=== PATIENT | male | born 1995 | race Caucasian/White ===

== ENCOUNTER 2022-05-24 10:41 | Outpatient (REF) | payer OTHER, SELFPAY ==
[2022-05-24 12:26] LABS: Cholesterol 133 mg/dL; Glucose Fasting 80 mg/dL (60-99); HDL Cholesterol 49 mg/dL; LDL Cholesterol Calculated 72 mg/dl; Triglycerides 61 mg/dL
== END 2022-05-24 10:42 | disposition home or self-care (01) ==
LOC: HO.LAB 10:41
PROVIDERS: Visit Provider Family Medicine
DX: E66.01 Morbid (severe) obesity due to excess calories (principal); Z82.49 Family history of ischemic heart disease and other diseases of the circulatory system
CPT/HCPCS: 36415; 80061; 82947

== ENCOUNTER 2024-12-30 13:45 | Outpatient (AMB) | payer OTHER, SELFPAY ==
--- NOTE | 2024-12-30 13:50 | A.OFFPC_ITS ---
Vital Signs 12/30/24 13:57 Height 5 ft 7.32 in Weight 252 lb BMI 39.1 BP 116/88 Blood Pressure Location Lt brachial Position Sitting Respiration 20 Pulse 96 Pulse Source Pulse Oximeter Temp 98.1 F Temp Source Temporal Artery Scan Pulse Oximetry (%) 98 Oxygen Delivery Method Room Air Intake Visit Reasons: cough for over a month Insurance Verify Rep Required: No Accompanied by: Self / Same As Patient Allergies No Known Allergies Allergy (Verified 12/30/24 13:50) Tobacco use date assessed: 12/30/24 Dental Screening Dental Screen Date: 12/30/24 Did you have a dental visit in the last 12 months?: Yes Did you have a dental problem in the last 6 months where you did not have access to dental care?: No Was dental information given to patient?: Patient has dentist HPI HPI Comments History of Present Illness Details The patient is a 29-year-old male presenting for evaluation of a persistent cough for over a month. He reports the cough has been present throughout the day and is dry in nature. The cough has been severe enough to cause pain and, on one occasion, he almost vomited. Last week, he was seen at an urgent care center where he was diagnosed with acute bronchitis and prescribed doxycycline, a 5-day course of prednisone 40 mg, azithromycin, promethazine DM, and a Ventolin inhaler, which he states have helped his symptoms. He has also used wojs-dru-emhuqyf Robitussin and cough drops, which provided temporary relief. He denies any fever, chills, or bringing up any phlegm. The patient denies any personal history of asthma, reactive airway disease, surgeries, or other medical conditions. He endorses a history of seasonal allergies to dust. His father from esophageal cancer in his early 50s and had a history of chronic acid reflux. Medical History: - Seasonal allergies Surgical History: - No prior surgeries reported. Medications: - Doxycycline (recently completed) - Prednisone 40 mg for 5 days (recently completed) - Azithromycin (Z-Teofilo) (recently [facility] ed) - Nasal spray (recently used) - Promethazine DM for cough (recently [facility] ed) - Ventolin inhaler (prescribed, not yet used) - Robitussin (qrop-fxz-bpmpzoo) - Cough drops (delq-zvh-onatany) Family History: - Father: in his early 50s from esophageal cancer; had a history of acid reflux. - Denies family history of diabetes or h eart disease. 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 - Substance Use: Denies use of tobacco, alcohol, marijuana, heroin, or cocaine. 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 1. Little interest or pleasure in doing things: not at all 2. Feeling down, depressed, or hopeless: not at all 3. Trouble falling or staying asleep, or sleeping too much: not at all 4. Feeling tired or having little energy: not at all 5. Poor appetite or overeating: not at all 6. Feeling bad about yourself - or that you are a failure or have let yourself or your family down: not at all 7. Trouble concentrating on things, such as reading the newspaper or watching television: not at all 8. Moving or speaking so slowly that other people could have noticed. Or the opposite - being so fidgety or restless that you have been moving around a lot more than usual: not at all 9. Thoughts that you would be better off or of hurting yourself in some way: not at all Total score: 0 Depression Screening Interpretation: Negative Depression Screening Done: Yes 13284 - PHQ-9 Billing: Yes Source: Developed by Drs. Ruben Easley, Suzette Albarado, Arthur Sharma and colleagues, with an educational yolis from [email or web address]. Thrive Questionnaire Date Thrive assessed: 12/30/24 I am a: Patient What is your living situation today?: I have a steady place to live Within the past 12 months, did the food you bought not last and you didn't have the money to get more?: Never true Within the past 12 months, did you worry whether your food would run out before you got money to buy more?: Never true Do you have trouble paying for medicines?: No Do you have trouble getting transportation to medical appointments?: No Do you have trouble paying your heating and electricity bill?: No Do you have trouble taking care of your child, family member or friend?: No Do you have trouble with day-to-day activities such as bathing, preparing meals, shopping, managing finances, etc.?: No Are you currently unemployed and looking for a job?: No Are you interested in more education?: No THRIVE Score: 0 AUDIT C Alcohol Use Questionnaire (AUDIT-C) 1. How often do you have a drink containing alcohol?: Never 3. How often do you have six or more drinks on one occasion?: Never Total Score: 0 Score Reviewed/Action Taken: Yes MYLENE-7 AMB Questionnaire MYLENE-7 Date MYLENE - 7 assessed: 12/30/24 Feeling nervous, anxious, or on edge: 0 = Not at all Not being able to stop or control worryin = Not at all Worrying too much about different things: 0 = Not at all Trouble relaxin = Not at all Being so restless that it is hard to sit still: 0 = Not at all Becoming easily annoyed or irritable: 0 = Not at all Feeling afraid as if something awful might happen: 0 = Not at all Total MYLENE-7 score (0-4 normal; 5-9 mild; 10-14 moderate; 15-21 severe): 0 Source: Developed by Drs. Ruben Easley, Suzette Albarado, Arthur Sharma and colleagues, with an educational yolis from [email or web address]. MYLENE-7 Assessment Billing MYLENE-7 Assessment Tool: MYLENE-7 Assessment 99690 Review of Systems Narrative - Constitutional: Denies fever, chills, weight loss, or weight gain. - Respiratory: Reports a persistent, dry cough for over a month, which causes pain from its severity. Denies shortness of breath or cough that awakens him from sleep. - HEENT: Denies vision loss, nasal stuffiness, or postnasal drip. - Cardiovascular: Denies chest pain. - Gastrointestinal: Denies heartburn, acid reflux, abdominal pain, difficulty swallowing, or food getting stuck. Reports normal bowel function. - Neurological: Denies headaches. All systems reviewed & are unremarkable except as reviewed in HPI and above Physical exam (Primary Care) Vital Signs: Last Vital Signs Temp 98.1 F 12/30/24 13:57 Pulse 96 12/30/24 13:57 Resp 20 12/30/24 13:57 BP 116/88 12/30/24 13:57 Pulse Ox 98 12/30/24 13:57 Oxygen Delivery Method Room Air 12/30/24 13:57 BMI result Body Mass Index 39.1 Tobacco/Smoking Status: Tobacco use Status Tobacco use date assessed 12/30/24 12/30/24 13:51 Patient Tobacco Use Status Never used Tobacco 12/30/24 13:51 e-Cigarette/Vaping Use Never Used 12/30/24 13:51 PHQ-9: PHQ-9 Score PHQ-9: Total score 0 12/30/24 13:59 Depression Screening Interpretation: Negative Thrive Assessment: Date of Thrive Assessment Date Thrive assessed 12/30/24 12/30/24 13:51 Narrative General: Alert and oriented, Well nourished, No acute distress. Eye: Pupils are equal, round and reactive to light, Intact accommodation, Extraocular movements are intact, Normal conjunctiva, Vision unchanged. HENT: Normocephalic, Atraumatic, Tympanic membranes are clear, Normal hearing, Oral mucosa is moist, No pharyngeal erythema, Ear canals patent. Respiratory: Lungs CTA bilaterally, No wheeze, Respirations are non-labored. Cardiovascular: Regular rate, Regular rhythm, S1 auscultated, S2 auscultated, No murmur, Good pulses equal in all extremities, Normal peripheral perfusion, No edema. Gastrointestinal: Soft, Non-tender, Non-distended, Normal bowel sounds, No organomegaly. Musculoskeletal: Normal range of motion, Normal strength, No tenderness, No swelling, No deformity, Normal gait. Integumentary: Warm, Dry, [place], Intact. Neurologic: Alert, Oriented, Normal sensory, Normal motor function, No focal defects, Cranial Nerves II-XII are grossly intact, Normal deep tendon reflexes. Psychiatric: Cooperative, Appropriate mood & affect, Normal judgment. Coding Level of Care Code New Pt Level 4 (41558) Diagnoses Acute cough R05.1 Additional Codes MYLENE-7 Assessment Billing - MYLENE-7 Assessment Tool: MYLENE-7 Assessment 86581 ([id number]) PHQ-9 - 82022 - PHQ-9 Billing: Yes ([id number]) Assessment & Plan Assessment & Plan (1) Acute cough: Comment: - The patient is a 29-year-old male with a persistent cough for over a month, which has been improving after recent treatment from an urgent care facility. - The differential diagnosis includes post-viral bronchitis, underlying asthma, postnasal drip from allergies, or a gastroesophageal reflux component, though he denies typical reflux symptoms. - Given the improvement with steroids, an inflammatory component such as asthma is possible, although he has no prior history and has not yet tried his prescribed inhaler. - The plan is to discontinue the recently completed course of medications and observe. - If the cough returns, he will trial individual therapies, including his Vent tere inhaler, xghq-fui-pajjqmd loratadine for allergies, and possibly an acid reflux medication, to help determine the etiology. - Further antibiotics are not indicated at this time. - Laboratory workup will be initiated, including a complete blood count, electrolytes, and swabs for COVID-19 and influenza. Code(s): R05.1 - Acute cough Category: Medical Plan: Health Maintenance: - Esophageal cancer screening: Discussed patient's concerns due to family histor y. Advised that routine screening is not indicated, but emphasized vigilance for symptoms such as dysphagia or unintentional weight loss. - Healthy lifestyle: Recommended eating healthy and weight management to reduce overall health risks, including those potentially associated with acid reflux. - Immunizations: Patient reports having a flu shot a while ago. - labs: Ordered baseline blood work (blood counts, electrolytes) as this is his first visit. Patient was informed and verbally consented to the use of an ambient scribe for clinic note documentation during this visit. Plan I had a detailed discussion with the patient, who is new to our practice, regarding his persistent cough of over one month. I explained that the cause is unclear but could be related to several factors, including a post-viral syndrome, underlying asthma, allergies with postnasal drip, or acid reflux. I noted that his improvement with the steroids from urgent care points towards an inflammatory process like asthma. We discussed a stepwise approach to diagnosis and management, which involves stopping his current medications now that the course is complete and observing his symptoms. I advised that if the cough returns, he should try individual treatments, including his prescribed inhaler and dmfd-cku-oalhfcb allergy medication, to help us identify the trigger. I also addressed his concerns about esophageal cancer risk due to his father's history. I clarified that there are no standard screening guidelines for esophageal cancer but emphasized the importance of monitoring for warning signs like difficulty swallowing, food getting stuck, or weight loss. I ordered a full set of baseline labs and swabs for COVID-19 and influenza to be done today. I p rovided him with instructions to set up his patient portal account for future communication and to access his results. He was agreeable to the plan and will follow up as needed. Orders: Orders Complete Blood Count Auto Diff Today Z76.89 - Persons encountering health services in other specified circumstances Hemoglobin A1c Today Z76.89 - Persons encountering health services in other specified circumstances Hepatitis A,B,C Profile Today Z76.89 - Persons encountering health services in other specified circumstances HIV Ab/Ag Today Z76.89 - Persons encountering health services in other specified circumstances Lipid Panel Today Z76.89 - Persons encountering health services in other specified circumstances Syphilis Screen Today Z76.89 - Persons encountering health services in other specified circumstances Comprehensive Met. Panel Today Z76.89 - Persons encountering health services in other specified circumstances TSH reflex Free T4 Today Z76.89 - Persons encountering health services in other specified circumstances Vitamin D 25-OH Total Today Z76.89 - Persons encountering health services in other specified circumstances SARS-CoV2/FLU/RSV Today R05.1 - Acute cough Patient Instructions: - You have completed the 5-day course of medications from the urgent care, so you can stop taking them now. - Please go across the [place] to the lab to have your blood drawn and to get swabs for COVID-19 and influenza. - If your cough comes back, please try using the Ventolin inhaler you were prescribed to see if that helps. - You can also try an zuuq-tvp-kywdulv allergy medicine like Zyrtec (loratadine) for a few days to see if that improves your cough. - Please sign up for the patient portal so you can see your lab results and message me with any questions. - Please call our office if your cough comes back and does not improve with these measures, or if you develop new symptoms like fever, difficulty swallowing, or weight loss.
[2024-12-30 13:57] VITALS: BP 116/88; PULSE 96; RESP 20; TEMP 36.7; O2SAT 98; BMI 39.1
--- OUTSIDE RECORDS SUMMARY | 2024-12-30 16:54 | XMS_ITS | Encounter Summary ---
Author Organization [facility] Address [address] [place] [phone] Phone Care Team Providers Care Admissions Gate Attendant Name Role Phone Unavailable Primary Care Provider Unavailabl e Encounter Details Date Type Department Care Team (Late st Contact Info) Description 11/22/2009 Documentation [facility] [place] [facility] [place] [address] Family Medicine, Physician [address] [place] [phone] Social History Tobacco Use Types Packs/Day Years Used Date Smoking Tobacco: Never Assessed Sex and Gender Information Value Date Recorded Sex Assigned at Not on file Legal Sex Male 5:06 PM EDT Gender Identity Not on file Sexual Orientation Not on file documented as of this encounter Plan of Treatment Not on file documented as of this encounter Visit Diagnoses Not on filedocumented in this encounter
--- OUTSIDE RECORDS SUMMARY | 2024-12-30 16:54 | XMS_ITS | Encounter Summary ---
Author Organization [facility] Address [address] [place] [phone] Phone Care Team Providers Care Custom Garment Designer Name Role Phone Unavailable Primary Care Provider Unavailabl e Encounter Details Date Type Department Care Team (Late st Contact Info) Description 06/22/2014 Documentation [facility] [place] [facility] [place] [address] Family Medicine, Physician [address] [place] [phone] Social History Tobacco Use Types Packs/Day Years [...]
--- OUTSIDE RECORDS SUMMARY | 2024-12-30 16:54 | XMS_ITS | Encounter Summary ---
Author Organization [facility] Address [address] [place] [address] Phone Care Team Providers Care Home Security Professional Name Role Phone Unavailable Primary Care Provider Unavailabl e Encounter Details Date Type Department Care Team ([facility] Contact Info) Description 10/12/2016 Conversion Encounter [facility] - [address] [address] Social History Tobacco Use Types Packs/Day Years Used Date Smoking Tobacco: Never Comments:Never smoker Sex and Gender Information Value Date Recorded Sex Assigned at Not on file Legal Sex Male 5:06 PM EDT Gender Identity Not on file Sexual Orientation Not on file documented as of this encounter Plan of Treatment Not on file documented as of this encounter Visit Diagnoses Not on filedocumented in this encounter
--- OUTSIDE RECORDS SUMMARY | 2024-12-30 16:54 | XMS_ITS | Clinical Summary ---
Author Organization [facility] Address [address] [place] [address] Phone Care Team Providers Care Irrigation Supervisor Name Role Phone Unavailable Primary Care Provider Unavailabl e Immunizations Immunization Administration Dates Next Due DTaP 5 09/12/2000, 8,01/07/1997, 997,1996 H1N1 04/08/2009 Hep B, ped/adol 01/07/1997,1996,1996 Hib (PRP-T) 08/20/1997, 7,1996, 997 IPV 06/13/2000, 7,1996, 997 MMR 09/12/2000,05/27/1997 Meningococcal Conj (Menactra) MCV4P 06/17/2015,0 07/03/2008 Tdap 07/03/2008 Varicella 07/03/2008,09/29/1999 Family History Relation Name Status Comments Brother Alive Brother: ADD/AD HD Father Alive Father: Alive a nd well Mother Alive Mother: Alive a nd well Other Family history of ADD/ADHD, Family history of Obesity, Family history of Diabetes mellitus Social History Tobacco Use Types Packs/Day Years Used Date Smoking Tobacco: Never Comments:Never smoker Sex and Gender Information Value Date Recorded Sex Assigned at Not on file Legal Sex Male 5:06 PM EDT Gender Identity Not on file Sexual Orientation Not on file Last Filed Vital Signs Vital Sign Reading Time Taken Comments Blood Pressure 137/86 06/17/2015 12:00 AM EDT Pulse 85 06/17/2015 12:00 AM EDT Temperature - - Respiratory Rate - - Oxygen Saturation - - Inhaled Oxygen Concentration - - Weight 97.8 kg (215 lb 9.6 oz) 06/17/2015 12:00 AM EDT Height 169.5 cm (5' 6.75 ) 06/17/2015 12:00 AM E DT Body Mass Index 34.02 06/17/2015 12:00 AM EDT Plan of Treatment Health Maintenance Due Date Last Done Comments DTaP,Tdap,and Td Vaccines (7 - Td or Tdap) 07/03/2018 07/03/2008, 09/12/2000, 08/20/1997, Additional history exists HPV Vaccines (1 - 3-dose SCDM series) 05/14/2023 Influenza Vaccines (#1) 2024 COVID-19 Vaccine (2024- season) 2024 Hepatitis B Vaccines Completed 01/07/1997, 1996, 1996 HIB Vaccines Completed 08/20/1997, 12/27, 1996, Additional history exists IPV Vaccines Completed 06/13/2000, 12/27, 1996, Additional history exists MMR Vaccines Completed 09/12/2000, 05/27/1997 Varicella Vaccines Completed 07/03/2008, 09/29/1999 Meningococcal Vaccine Aged Out 06/17/2015, 009 No longer eligible based on patient's age to complete this topic Hepatitis A Vaccines Aged Out No long er eligible based on patient's age to complete this topic Men B Vaccine Aged Out No longer elig ible based on patient's age to complete this topic Pneumococcal Vaccine Aged Out No long er eligible based on patient's age to complete this topic
--- OUTSIDE RECORDS SUMMARY | 2024-12-30 16:54 | XMS_ITS | Encounter Summary ---
Author Organization [facility] Address [address] [place] [phone] Phone Care Team Providers Care Flatwork Catcher Name Role Phone Unavailable Primary Care Provider Unavailabl e Encounter Details Date Type Department Care Team (Late st Contact Info) Description 12/23/2012 Documentation [facility] [place] [address] [place] [address] Family Medicine, Physician [address] [place], [place] [phone] Social History Tobacco Use Types Packs/Day Years [...]
--- OUTSIDE RECORDS SUMMARY | 2024-12-30 16:54 | XMS_ITS | Encounter Summary ---
Author Organization [facility] Address [address] [place] [phone] Phone Care Team Providers Care Public Service Director Name Role Phone Unavailable Primary Care Provider Unavailabl e Encounter Details Date Type Department Care Team (Late st Contact Info) Description 11/22/2009 Documentation [facility] [place] [address] Family Medicine, Physician [address] [place] [phone] Social History Tobacco Use Types Packs/Day Years [...]
== END 2024-12-30 14:27 | disposition home or self-care (01) ==
PROVIDERS: PCP Student in an Organized Health Care Education/Training Program; Visit Provider Student in an Organized Health Care Education/Training Program
DX: R05.1 Acute cough (principal)

== ENCOUNTER → 2024-12-30 13:45 | Outpatient (BNVA) | payer OTHER, SELFPAY | PROVIDERS: Visit Provider Student in an Organized Health Care Education/Training Program | DX: R05.1 Acute cough (principal) | CPT/HCPCS: 96127 ==

== ENCOUNTER 2025-01-07 15:17 | Outpatient (AMB) | payer OTHER, SELFPAY ==
--- NOTE | 2025-01-07 15:15 | MHC.PC.OV ---
Vital Signs 01/07/25 15:25 Height 5 ft 7.2 in Weight 113.398 kg BMI 38.9 BP 114/82 Blood Pressure Location Lt brachial Position Sitting Respiration 18 Pulse 99 Pulse Source Pulse Oximeter Temp 97.5 F Temp Source Temporal Artery Scan Pulse Oximetry (%) 96 Oxygen Delivery Method Room Air Intake Visit Reasons: 6 MO F/UP - MELISA PT - HANNAHS DR. CASTRO Equity Manager Required: No Accompanied by: Self / Same As Patient Allergies No Known Allergies Allergy (Verified 01/07/25 15:15) Medication List - Last Reconciled 01/07/25 by ALMITA Villanueva ascorbic acid (vitamin C) mg PO dextromethorphan-guaifenesin 5-100 mg/5 mL (Robitussin Cough-Chest Congestion DM) 10 mL PO Q4-8H PRN diphenhydramine-acetaminophen 25-500 mg (Tylenol PM Extra Strength) 1 tab PO BEDTIME PRN fluticasone propionate 50 mcg/actuation sprays intranasal loratadine (Allergy Relief (loratadine)) 10 mg PO DAILY PRN Tobacco use date assessed: 12/30/24 Dental Screening Dental Screen Date: 12/30/24 HPI HPI Comments History of Present Illness Details 21-year-old male with history of eczema presenting to the office today for annual physical exam. Lives with mother and brother and feels safe there. 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 No history of alcohol use, cigarette smoking, illicit drug use or marijuana. He reports he goes for walks but no formal exercise. Looking to start using a stationary bike at home. He does report following a healthy diet overall and is working on weight loss. Eczema-uses emollient moisturizers as well as hydrocortisone cream Obesity-BMI 38.9. As above Concerns: He has had a persistent cough ongoing for 1 month. He reports he initially had an upper respiratory infection with a much deeper cough, dyspnea with exertion. Was seen at urgent care and given prescription for prednisone 40 mg x 5 days, Z-Teofilo, fluticasone, cough syrup, and albuterol inhaler. He has no known history of asthma. Since then, cough has improved slightly-not as frequent and no longer associated with pleuritic pain. Health maintenance: FH esophageal cancer-has never been seen by Gastroenterology Colonoscopies to start at age 46 Has not yet been to the eye doctor Overdue for dental exams Vaccines up-to-date Wears sun protection Reviewed past medical, surgical, family, social history ROS: General: No fevers, malaise, unintentional weight loss HEENT: No blurred vision, diplopia. No sore throat, nasal congestion, rhinorrhea, sinus pain, ear pain. No hearing loss Neck - no adenopathy Cardiovascular: No chest pain, palpitations, or leg edema Respiratory: No shortness of breath, wheezing. see hpi GI: No dysphagia, odynophagia, globus sensation. No abdominal pain, nausea, vomiting, diarrhea, constipation, melena, hematochezia : No dysuria, hematuria, increased urinary frequency, decreased urinary output. No testicular swelling or pain. No penile discharge MSK: No myalgia, back pain, arthralgias Neuro: No headaches, weakness, paresthesias Psych: no depression/anxiery. No AH/VH. No SI/HI Skin: No rashes or lesions. see hpi EXAM: Constitutional - Awake and Alert, No apparent distress Eyes - PERRLA, EOMI. Anicteric Ears - external ears normal, canals clear, TMs intact and pearly eastman with good cone of light Nose- septum midline, nares clear, no sinus tenderness Mouth/throat- mucosa moist, tongue and uvula midline, no erythema/edema or tonsillar adenopathy. Neck-trachea midline, thyroid symmetric without palpable nodules, no adenopathy Cardiovascular - S1S2, RRR, No edema Respiratory - Normal lung expansion, Normal respiratory effort, No respiratory distress, CTA bilaterally Gastrointestinal - NT / ND; +BS; No rebound or guarding - No CVA tenderness Extremities - no calf tenderness bilaterally, no swelling Musculoskeletal - Normal inspection, normal ROM Skin - Warm/Dry, no concerning lesions. Fainly erythematous/link lesions over the bilateral MCP joints in the dorsum of the right hand Neurological - Alert & oriented x3, CN II-XII in tact, 5/5 strength BUE and BLE, 2+ patellar reflexes, sensation intact Psychological - Appropriate affect [facility] Medical History (Updated 01/10/25 @ 11:35 by ALMITA Villanueva) Atopic dermatitis Acute cough Surgical History No pertinent past surgical history Family History Father Esophageal cancer, Onset Age: 50 Maternal Grandfather Cancer Social History Housing: House Patient Tobacco Use Status: Never used Tobacco e-Cigarette/Vaping Use: Never Used service: No Current occupational status: employed and student Current occupation: PRODUCTION TRUCK DRIVER [employer] Cognitive needs: No Hearing needs: No Vision needs: No Questionnaire Thrive Questionnaire Date Thrive assessed: 12/30/24 MYLENE-7 AMB Questionnaire MYLENE-7 Date MYLENE - 7 assessed: 12/30/24 Source: Developed by Drs. Ruben Easley, Suzette Albarado, Arthur Sharma and colleagues, with an educational yolis from [employer]. Physical exam (Primary Care) Vital Signs: Last Vital Signs Temp 97.5 F 01/07/25 15:25 Pulse 99 01/07/25 15:25 Resp 18 01/07/25 15:25 BP 114/82 01/07/25 15:25 Pulse Ox 96 01/07/25 15:25 Oxygen Delivery Method Room Air 01/07/25 15:25 BMI result Body Mass Index 38.9 Tobacco/Smoking Status: Tobacco use Status Tobacco use date assessed 12/30/24 01/07/25 15:16 Patient Tobacco Use Status Never used Tobacco 01/07/25 15:16 e-Cigarette/Vaping Use Never Used 01/07/25 15:16 Thrive Assessment: Date of Thrive Assessment Date Thrive assessed 12/30/24 01/07/25 15:16 Coding Level of Care Code New Pt Prev Care 18-39yr(98449 Diagnoses Routine medical exam Z00.00 Atopic dermatitis L20.9 Acute cough R05.1 Assessment & Plan Assessment & Plan (1) Routine medical exam: Code(s): Z00.00 - Encounter for general adult medical examination without abnormal findings Category: Medical Plan: 29 year old maler presenting for annual exam and to establish care. Plan as below (2) Atopic dermatitis: Code(s): L20.9 - Atopic dermatitis, unspecified Category: Medical Plan: Continue moisturizers and steroid cream (3) Acute cough: Code(s): R05.1 - Acute cough Category: Medical Plan: Continue cough syrup. Add loratidine and flonase If sx persist, consider GERD Plan Routine screening labs as ordered below Colonoscopies age 46. Referred to GI d/t FH gastric cancer in father Continue following for annual skin exams and use sun protection Annual eye exams Wear seat belt in car Recommend regular exercise and healthy diet Follow up in 1 year for annual exam Orders: Referrals Gastroenterology Referral Z80.0 - Family history of malignant neoplasm of digestive organs Medications: New diphenhydramine-acetaminophen 25-500 mg (Tylenol PM Extra Strength) 1 tab PO BEDTIME PRN 30 tabs 0RF cold symptoms loratadine (Allergy Relief (loratadine)) 10 mg PO DAILY PRN 90 caps 1RF allergy symptoms dextromethorphan-guaifenesin 5-100 mg/5 mL (Robitussin Cough-Chest Congestion DM) 10 mL PO Q4-8H PRN 1,000 mL 0RF cough Patient Instructions: Try loratidine and flonase for the cough as well as cough syrups as needed. Use albuterol inhaler as needed If cough is not getting better, can try omeprazole 20mg daily (take on an empty stomach with meds, no food or drink other than water for 45-60 minutes).
[2025-01-07 15:25] VITALS: BP 114/82; PULSE 99; RESP 18; TEMP 36.4; O2SAT 96; BMI 38.9
--- OUTSIDE RECORDS SUMMARY | 2025-01-07 18:33 | XMS_ITS | Encounter Summary ---
Author Organization [facility] Address [address] [place] [phone] Phone Care Team Providers Care High School Science Tutor Name Role Phone Unavailable Primary Care Provider Unavailabl e Encounter Details Date Type Department Care Team (Late st Contact Info) Description 06/22/2014 Documentation [facility] [place] [facility] [place] [address] Family Medicine, Physician [address] [place] [place], [place] [phone] Social History Tobacco Use Types Packs/Day Years [...]
--- OUTSIDE RECORDS SUMMARY | 2025-01-07 18:33 | XMS_ITS | Encounter Summary ---
Author Organization [facility] Address [address] [place] [address] Phone Care Team Providers Care Brush Filler Hand Name Role Phone Unavailable Primary Care Provider Unavailabl e Encounter Details Date Type Department Care Team (Late st Contact Info) Description 11/22/2009 [place] [facility] [facility] [place] [facility] [place] [address] Family Medicine, Physician [address], [place] [phone] Social History Tobacco Use Types Packs/Day Years [...]
--- OUTSIDE RECORDS SUMMARY | 2025-01-07 18:33 | XMS_ITS | Encounter Summary ---
Author Organization [facility] Address [address] [place] [phone] Phone Care Team Providers Care Turning Machine Set Up Operator Name Role Phone Unavailable Primary Care Provider Unavailabl e Encounter Details Date Type Department Care Team (Late st Contact Info) Description 12/23/2012 Documentation [facility] [place] [address] [place] [address] Family Medicine, Physician [address] [place], [place] [phone] Social History Tobacco Use Types Packs/Day Years [...]
--- OUTSIDE RECORDS SUMMARY | 2025-01-07 18:33 | XMS_ITS | Clinical Summary ---
Author Organization [facility] Address [address] [place] [phone] Phone Care Team Providers Care Hedis Analyst Name Role Phone Unavailable Primary Care Provider [...]
--- OUTSIDE RECORDS SUMMARY | 2025-01-07 18:33 | XMS_ITS | Encounter Summary ---
Author Organization [facility] Address [address] [place] [address] Phone Care Team Providers Care Operator Lights Name Role Phone Unavailable Primary Care Provider Unavailabl e Encounter Details Date Type Department Care Team ([facility] Contact Info) Description 10/12/2016 Conversion Encounter [facility] - [address] [phone] Social History Tobacco Use Types Packs/Day Years [...]
--- OUTSIDE RECORDS SUMMARY | 2025-01-07 18:33 | XMS_ITS | Encounter Summary ---
Author Organization [facility] Address [address] [place] [phone] Phone Care Team Providers Care Drop Forger Helper Name Role Phone Unavailable Primary Care Provider Unavailabl e Encounter Details Date Type Department Care Team (Late st Contact Info) Description 11/22/2009 [place] [facility] [place] [facility] [place] [address] Family Medicine, Physician [address] [place], [place] [phone] Social History Tobacco Use Types Packs/Day Years [...]
== END 2025-01-07 15:58 | disposition home or self-care (01) ==
PROVIDERS: Visit Provider Physician Assistant
DX: Z00.00 Encounter for general adult medical examination without abnormal findings (principal); L20.9 Atopic dermatitis, unspecified; R05.1 Acute cough